=== PATIENT | male | born 1965 | race Caucasian/White ===

== ENCOUNTER 2018-05-21 10:07 | Day surgery (SDC) | payer OTHER ==
[~2018-05-21 10:07] MED LIST: CEFAZOLIN 1 GM/50 ML (PMX) 50 ML IVPB; ONDANSETRON 4 MG INJ; SOD CHLORIDE 0.9% 1,000 ML IV
[2018-05-21] MEDS ORDERED: SOD CHLORIDE 0.9% 1,000 ML IV (11:00)
[2018-05-21 11:07] LABS: ADD MAN DIFF? NO
[2018-05-21 11:09] LABS: BASOPHILS % 0.7 % (0.0-2.0); EOSINOPHILS # 0.2 10^3/ul (0.0-0.5); HEMATOCRIT 42.5 % (42.0-52.0); HEMOGLOBIN 15.3 g/dl (14.0-18.0); LYMPHOCYTES % 50.3 % (15.0-51.0); MEAN CORPUSCULAR HEMOGLOBIN 32.1 pg (29.0-33.0); MEAN CORPUSCULAR VOLUME 89.3 fl (82.0-101.0); MONOCYTE # 0.3 10^3/ul (0.3-0.9); MONOCYTES % 5.4 % (0.0-11.0); NEUTROPHIL # 2.4 10^3/ul (1.6-7.5); NEUTROPHILS % 40.1 % (39.0-77.0); PLATELET COUNT 149 10^3/UL (140-415); RED BLOOD COUNT 4.76 10^6/ul (4.70-6.10); RED CELL DISTRIBUTION WIDTH 12.6 % (11.5-14.5)
[2018-05-21 11:09] LABS: WHITE BLOOD COUNT 5.9 10^3/ul (4.8-10.8)
[2018-05-21] MEDS ORDERED: hydrALAzine 20 MG INJ IV (11:30)
[2018-05-21] MEDS ORDERED: LABETALOL HCL 20MG INJ IV (11:30)
[2018-05-21] MEDS ORDERED: IPRATROPIUM (NEB) 0.5 MG/2.5 ML AMP HHN (11:30)
[2018-05-21] MEDS ORDERED: ONDANSETRON 4 MG INJ IV ×2 (11:30→13:30)
[2018-05-21] MEDS ORDERED: MEPERIDINE 25 MG INJ IV (11:30)
[2018-05-21] MEDS ORDERED: HYDROmorphONE 1 MG/5 ML IV SYRINGE IV ×2 (11:30)
[2018-05-21] MEDS ORDERED: FENTAnyl 50 MCG/ML VIAL IV ×2 (11:30)
[2018-05-21] MEDS ORDERED: KETOROLAC 30 MG INJ IV ×2 (11:30→13:30)
[2018-05-21] MEDS ORDERED: DIPHENHYDRAMINE 50 MG INJ IV (11:30)
[2018-05-21 11:31] LABS: INR 0.96; PARTIAL THROMBOPLASTIN TIME 27.7 Sec (25.0-35.0); PROTIME 12.9 Sec (11.9-14.9)
[2018-05-21 11:38] LABS: ALANINE AMINOTRANSFERASE 77 IU/L (13-69); ALBUMIN 4.5 g/dl (3.3-4.9); ALBUMIN/GLOBULIN RATIO 1.32; ALKALINE PHOSPHATASE 95 IU/L (42-121); ANION GAP 16 (8-16); ASPARTATE AMINO TRANSFERASE 62 IU/L (15-46); BILIRUBIN,INDIRECT 0.9 mg/dl (0-1.1); BILIRUBIN,TOTAL 0.9 mg/dl (0.2-1.3); BLOOD UREA NITROGEN 22 mg/dl (7-20); CALCIUM 9.5 mg/dl (8.4-10.2); CARBON DIOXIDE 25 mmol/L (21-31); CHLORIDE 105 mmol/L (97-110); CREATININE 1.26 mg/dl (0.61-1.24); GLUCOSE 134 mg/dl (70-220); SODIUM 142 mmol/L (135-144); TOTAL PROTEIN 7.9 g/dl (6.1-8.1)
[2018-05-21] MEDS ORDERED: MIDAZOLAM 1 MG/ML 2 ML INJ (11:38)
[2018-05-21] MEDS ORDERED: METOCLOPRAMIDE 10 MG INJ (11:38)
[2018-05-21] MEDS ORDERED: FENTAnyl 50 MCG/ML VIAL (11:38)
[2018-05-21] MEDS ORDERED: LIDOCAINE 2% (SDV) 5 ML INJ (11:39)
[2018-05-21] MEDS ORDERED: CEFAZOLIN 1 GM INJ (11:39)
[2018-05-21] MEDS ORDERED: PROPOFOL 20 ML (11:39)
[2018-05-21] MEDS ORDERED: ROCURONIUM 50 MG INJ (11:40)
[2018-05-21] MEDS ORDERED: SUCCINYLCHOLINE CHLORIDE 100 MG/5 ML SYG IV (11:40)
[2018-05-21] MEDS ORDERED: SUGAMMADEX SODIUM 200 MG/2 ML VIAL IV (11:40)
[2018-05-21] MEDS ORDERED: FLUMAZENIL 0.5 MG INJ ×2 (11:57)
[2018-05-21] MEDS ORDERED: ROPIVACAINE 0.5 % 30 ML VIAL (11:58)
[2018-05-21] MEDS: BUPIVACAINE 0.25%/EPI (SDV) 30 ML INJ (12:30)
[2018-05-21] MEDS: CEFAZOLIN 2 GM/50 ML (PMX) 50 ML IVPB (13:00)
[2018-05-21] MEDS ORDERED: OXYCODONE/ACETAMINOPHEN (5/325) TAB PO (13:30)
[2018-05-21] MEDS ORDERED: IBUPROFEN 600 MG TAB PO (13:30)
[2018-05-21] MEDS ORDERED: morphine 2 MG INJ IV (13:30)
[2018-05-21] MEDS: ALBUTEROL/IPRATROPIUM (NEB) 3 ML AMP HHN (14:01)
[2018-05-21] MEDS: INSULIN ASPART [NOVOLOG] 3 ML PEN SC (14:48)
[2018-05-21] MEDS: INSULIN REGULAR, HUMAN 100 UNIT/1 ML 3ML VIAL IV ×2 (15:38→16:23)
[2018-05-21] MEDS: METOPROLOL 5 MG INJ IV (17:19)
[2018-05-21] MEDS: OXYCODONE/ACETAMINOPHEN (5/325) TAB PO (17:48)
== END 2018-05-21 18:23 | disposition home or self-care (01) ==
LOC: SDS 10:07
DX: K43.2 Incisional hernia without obstruction or gangrene (principal); I10 Essential (primary) hypertension; E11.42 Type 2 diabetes mellitus with diabetic polyneuropathy
CPT/HCPCS: 49656; 80053; 82962; 85025; 85610; 85730; 93005